=== PATIENT | male | born 1965 | race Two or more races ===

== ENCOUNTER 2017-01-18 15:03 | Emergency (ER) | payer MEDICAID ==
[~2017-01-18] VITALS: Ht 182.9 cm; Wt 171.0 kg
[2017-01-18 15:33] VITALS: BP 141/81
[2017-01-18] MEDS ORDERED: TRAM-48 PO (16:21)
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
== END 2017-01-18 16:34 | disposition home or self-care (01) ==
LOC: ER 15:03
DX: G89.29 Other chronic pain (principal); M54.5 Low back pain; Z76.0 Encounter for issue of repeat prescription; I10 Essential (primary) hypertension; J45.909 Unspecified asthma, uncomplicated; Z98.890 Other specified postprocedural states; E66.9 Obesity, unspecified; Z68.43 Body mass index [BMI] 50.0-59.9, adult
CPT/HCPCS: 99283